=== PATIENT | female | born 1995 | race African-American/Black ===

== ENCOUNTER 2024-11-09 09:30 | Inpatient (IN) | payer OTHER ==
[2024-11-09] MEDS: LACTATED RINGERS SOLUTION 1,000 ML/1,000 ML INFUS.BAG IV SCH (10:35)
[2024-11-09 10:46] VITALS: BMI 32.3
[2024-11-09 11:04] LABS: BASO % 0.3 % (0-2.0); EOS % 0.6 % (0-4.5); HEMOGLOBIN 11.2 GM/dL (10.7-15.3); LYMPH % 32.7 % (8-40); MCH 23.1 pg (25.7-33.7); MCHC 31.2 g/dl (32.0-36.0); MEAN CELL VOLUME 74.2 fl (80-96); MEAN PLT VOLUME 9.5 fl (7.5-11.1); MONO % 7.2 % (3.8-10.2); NEUT % 59.2 % (42.8-82.8); PLATELET COUNT 196 10^3/uL (134-434); RBC 4.86 M/mm3 (3.60-5.2); RDW 20.4 % (11.6-15.6); WHITE BLOOD COUNT 7.7 K/mm3 (4.0-10.0)
[2024-11-09 11:07] LABS: INR 0.99 (0.83-1.09); PROTHROMBIN TIME (PATIENT) 10.8 SEC (9.7-13.0)
[2024-11-09] MEDS ORDERED: OXYTOCIN 30 UNITS in 0.9% NS 30 UNIT/500 ML INFUS.BAG IVPB ONE (11:08)
[2024-11-09 11:10] LABS: ACTIVATED PTT 24.8 SECONDS (25.2-36.5)
[2024-11-09] MEDS: OXYTOCIN 30 UNITS in 0.9% NS 30 UNIT/500 ML INFUS.BAG IVPB SCH (11:20)
[2024-11-09 12:03] LABS: POTASSIUM 4.3 mmol/L (3.5-5.1)
[2024-11-09 12:05] LABS: BLOOD UREA NITROGEN 12.6 mg/dL (7-18); CALCIUM 9.1 mg/dL (8.5-10.1)
[2024-11-09 12:09] LABS: CREATININE 0.7 mg/dL (0.55-1.3)
[2024-11-09 16:20] LABS: HIV INTERPRETATION NEGATIVE (NEGATIVE)
[2024-11-09] MEDS: DINOPROSTONE 10 MG VAGINAL SUPPOSITORY VG ONE (21:30)
[2024-11-09] MEDS ORDERED: ZOLPIDEM TARTRATE 5 MG TABLET PO PRN (21:33)
[2024-11-10] MEDS ORDERED: OXYTOCIN 30 UNITS in 0.9% NS 30 UNIT/500 ML INFUS.BAG IVPB ONE ×2 (11:05→19:39)
[2024-11-10] MEDS: OXYTOCIN 30 UNITS in 0.9% NS 30 UNIT/500 ML INFUS.BAG IVPB SCH (11:15)
[2024-11-10] MEDS: CITRIC ACID/SODIUM CITRATE 30 ML UNIT-DOSE CUP PO ONE (19:20)
[2024-11-10] MEDS ORDERED: ceFAZolin SODIUM 1 GM VIAL ONE (19:39)
[2024-11-10] MEDS ORDERED: ONDANSETRON 4 MG/2 ML VIAL ONE (19:39)
[2024-11-10] MEDS ORDERED: FENTANYL CITRATE/PF 50 MCG/ML VIAL ONE (19:40)
[2024-11-10] MEDS ORDERED: morphine SULFATE/PF 1 MG/2 ML (2cc Syringe - QUVA) ONE (19:40)
[2024-11-10] MEDS ORDERED: ONDANSETRON 4 MG/2 ML VIAL IVPUSH PRN (20:59)
[2024-11-10] MEDS ORDERED: METHYLERGONOVINE MALEATE 0.2 MG/1 ML AMP IM PRN (21:25)
[2024-11-10] MEDS ORDERED: OXYTOCIN 30 UNITS in 0.9% NS 30 UNIT/500 ML INFUS.BAG IVPB SCH (21:36)
[2024-11-10] MEDS ORDERED: OXYTOCIN 20 UNITS in 0.9% NS 20 UNIT/1,000 ML INFUS.BAG IV ONE (21:39)
[2024-11-10] MEDS: OXYTOCIN 20 UNITS in 0.9% NS 20 UNIT/1,000 ML INFUS.BAG IV SCH (21:45)
[2024-11-10] MEDS: PROMETHAZINE HCL 25 MG/1 ML VIAL IVPB ONE (23:24)
[2024-11-10] MEDS: BUTORPHANOL TARTRATE 2 MG/ML VIAL IVPB ONE (23:24)
[2024-11-10] MEDS ORDERED: ACETAMINOPHEN INJECTION 100 ML ONE (23:43)
[2024-11-10] MEDS: ACETAMINOPHEN 1000 MG/100 ML BAG IVPB PRN (23:45)
[2024-11-11 01:19] VITALS: RESP 18
[2024-11-11] MEDS: morphine SULFATE/PF 1 MG/2 ML (2cc Syringe - QUVA) IT ONE (01:50)
[2024-11-11] MEDS: IBUPROFEN 800 MG/8 ML IJ IVPB PRN (03:24)
[2024-11-11 08:06] LABS: BASO % 0.3 % (0-2.0); EOS % 0.6 % (0-4.5); HEMATOCRIT 31.5 % (32.4-45.2); HEMOGLOBIN 9.7 GM/dL (10.7-15.3); LYMPH % 22.1 % (8-40); MCH 22.9 pg (25.7-33.7); MCHC 30.9 g/dl (32.0-36.0); MEAN CELL VOLUME 74.1 fl (80-96); MEAN PLT VOLUME 9.3 fl (7.5-11.1); MONO % 5.7 % (3.8-10.2); NEUT % 71.3 % (42.8-82.8); PLATELET COUNT 160 10^3/uL (134-434); RBC 4.25 M/mm3 (3.60-5.2); RDW 19.5 % (11.6-15.6); WHITE BLOOD COUNT 9.1 K/mm3 (4.0-10.0)
[2024-11-11] MEDS: PRENATAL VITAMINS W/ FOLIC ACID TABLET (FP) PO SCH (09:17)
[2024-11-11] MEDS: FERROUS SO4 325 MG TABLET (FP) PO SCH (09:17)
[2024-11-11] MEDS ORDERED: oxyCODONE HCL 5 MG TABLET PO PRN ×2 (09:25)
[2024-11-11] MEDS: IBUPROFEN 600 MG TABLET (FP) PO PRN (12:41)
[2024-11-11] MEDS: ACETAMINOPHEN 325 MG TABLET (FP) PO PRN (17:02)
[2024-11-11] MEDS: SIMETHICONE 80 MG TAB.CHEW (FP) PO PRN (20:40)
[2024-11-11] MEDS: SENNOSIDES/DOCUSATE COMBO (SENNA PLUS) TABLET (UD) PO PRN (20:41)
[2024-11-11] MEDS ORDERED: BISACODYL 10 MG SUPP.RECT RC PRN (21:25)
[2024-11-11] MEDS: guaiFENesin 200 MG/10 ML 10 ML UNIT-DOSE CUPS PO PRN (21:38)
[2024-11-13 08:29] VITALS: BP 129/87; PULSE 112; TEMP 98.4
== END 2024-11-13 14:31 | disposition home or self-care (01) | DRG 540 ==
LOC: JLDR 09:30 → J3W 11-10 23:52
PROVIDERS: ADMIT Obstetrics & Gynecology; ATTEND Obstetrics & Gynecology
PROC: 3E0P7VZ Introduction of Hormone into Female Reproductive, Via Natural or Artificial Opening (ICD-10-PCS; 2024-11-09)
PROC: 10D00Z1 Extraction of Products of Conception, Low, Open Approach (ICD-10-PCS; principal; 2024-11-10)
DX: O62.1 Secondary uterine inertia (principal); O36.8330 Maternal care for abnormalities of the fetal heart rate or rhythm, third trimester, not applicable or unspecified; O69.81X0 Labor and delivery complicated by cord around neck, without compression, not applicable or unspecified; Z3A.42 42 weeks gestation of pregnancy; O48.0 Post-term pregnancy; Z37.0 Single live birth
CPT/HCPCS: 36415; 80048; 85025; 85610; 85730; 86780; 86850; 86900; 86901; 87389; 88307-TC; 94010; J0131